=== PATIENT | female | born 1970 | race Caucasian/White ===

== ENCOUNTER → 2021-06-27 11:24 | Outpatient (REF) | payer OTHER, SELFPAY | LOC: ANHLAB 11:24 | PROVIDERS: Visit Provider Nurse Practitioner | DX: L57.0 Actinic keratosis (principal) | CPT/HCPCS: 88305 ==

== ENCOUNTER → 2022-08-20 10:12 | Outpatient (CLI) | payer OTHER, SELFPAY ==
--- NOTE | ~2022-08-20 | CT_ITS ---
EXAMINATION: CT brain wo/w con DATE: 08/20/2022 11:12 INDICATION: Vertigo, apraxia. Dizziness. TECHNIQUE: Computed tomography (CT) of the head was performed without and subsequently with 100 CC Om nipaque 350 intravenous contrast. The mA was adjusted according to patient size. Iterative reconstruc tion technique was employed. Exam dose: 1049.24 mGy-cm total exam DLP. COMPARISON: None FINDINGS: No intracranial mass lesion or hemorrhage or cerebrovascular accident is detected. No midli ne shift or mass effect effect. No subdural or epidural hematoma. Mild cerebral artery calcification. Prominent pineal gland calcification is noted. No orbital mass lesion. Included mastoid air cells and paranasal sinuses are normally developed and aerated with exception of mucoperiosteal thickening and/or fluid of the right sphenoid sinus. No fracture or bone destruction of the cranial vault. IMPRESSION: No acute intracranial abnormality Reviewed, dictated and finalized at [facility]. Reviewed, dictated and finalized at [facility].
== END ==
PROVIDERS: PCP Physician Assistant Medical; Visit Provider Physician Assistant Medical
DX: R42 Dizziness and giddiness (principal)
CPT/HCPCS: 70470; Q9967